=== PATIENT | female | born 1995 | race Caucasian/White ===

== ENCOUNTER 2016-05-19 10:05 | Outpatient (CLI) ==
[2015-07-20 14:23] VITALS: BMI 24.7
--- NOTE | 2016-05-19 15:23 | MRI ---
EXAM: Brain MRI without contrast. HISTORY: Primary stabbing headache. COMPARISON: Head CT 11/01/2014. TECHNIQUE: Multiplanar, multisequence MR images were acquired of the brain without contrast. FINDINGS: The midline structures are central and the craniocervical junction is unremarkable. The ventricles and sulci are normal in size and configuration. There are no abnormal extra-axial fluid collections. The brain parenchyma has no diffusion restriction to suggest acute hypoperfusion or infarction. The re are no abnormal T2 hyperintensities or foci of dark gradient echo signal. The corpus callosum is normal. The pituitary gland is unremarkable. There are no intraorbital masses. There is mild mucosal thickening and a small mucous retention cys t in the left maxillary sinus. Minor scattered mucosal thickening is present in the ethmoid air luis ls and sphenoid sinus. There is moderate adenoidal hypertrophy that is considered normal for the pa tient's age. Middle ears and mastoids are unremarkable. Flow voids are present in the major intracranial arteries and dural venous sinuses. IMPRESSION: 1. No intracranial mass, hemorrhage or acute cerebral infarct. 2. Mild left maxillary sinus disease.
== END 2016-05-19 10:06 | disposition home or self-care (01) ==
LOC: RAD 10:05
PROVIDERS: ATTEND Nurse Practitioner Family
DX: G44.85 Primary stabbing headache (principal)

== ENCOUNTER 2016-09-16 12:38 | Outpatient (CLI) ==
[2015-07-20 14:23] VITALS: BMI 24.7
[2016-09-16 13:00] LABS: BASOPHILS % (AUTO) 0.4 % (0.0-3.0); EOSINOPHILS # (AUTO) 0.2 K/ul (0.0-0.7); EOSINOPHILS % (AUTO) 2.7 % (0.0-7.0); HEMATOCRIT 42.7 % (37.0-47.0); HEMOGLOBIN 14.5 g/dl (12.0-16.0); IMMATURE GRANULOCYTE % (AUTO) 0.1 % (0.0-5.0); LYMPHOCYTES # (AUTO) 2.2 K/uL (0.60-3.4); MEAN CORPUSCULAR HEMOGLOBIN 30.9 pg (27.0-31.0); MONOCYTES # (AUTO) 0.6 K/uL (0.4-2.0); MONOCYTES % (AUTO) 8.8 (0-10); NEUTROPHILS # (AUTO) 3.9 K/ul (2.0-6.9); PLATELET COUNT 263 10^3/uL (140-440); RED BLOOD COUNT 4.69 10^6/ul (4.20-5.40); WHITE BLOOD COUNT 6.93 K/ul (4.6-10.2)
[2016-09-16 13:02] LABS: BILIRUBIN,URINE Negative (NEGATIVE); KETONES,URINE Negative (NEGATIVE); LEUKOCYTE ESTERASE ,URINE Negative (NEGATIVE); NITRITE,URINE Negative (NEGATIVE); PH,URINE 5.5 (5-9); PROTEIN,URINE Negative (NEGATIVE); URINE, BLOOD Negative (NEGATIVE)
[2016-09-16 13:32] LABS: ALBUMIN/GLOBULIN RATIO 1.14; ANION GAP 13.5; BILIRUBIN,TOTAL 0.46 mg/dL (0.00-1.20); BUN/CREATININE RATIO 10.71; CALCIUM 9.7 mg/dL (8.2-10.2); CREATININE 0.84 mg/dL (0.60-1.30); POTASSIUM 4.5 mmol/L (3.5-5.10); TOTAL PROTEIN 7.5 g/dL (6.4-8.2)
[2016-09-16 13:51] LABS: ADD URINE MICROSCOPIC YES
[2016-09-16 13:56] LABS: BACTERIA,URINE TRACE (NOT PRESENT)
== END 2016-09-16 12:39 | disposition home or self-care (01) ==
LOC: LAB 12:38
PROVIDERS: ATTEND Nurse Practitioner Family
DX: R10.84 Generalized abdominal pain (principal)
CPT/HCPCS: 36415; 80053; 81001; 82150; 83690; 84443; 85025

== ENCOUNTER 2017-07-14 12:43 | Outpatient (CLI) ==
[2015-07-20 14:23] VITALS: BMI 24.7
== END 2017-07-14 12:44 | disposition home or self-care (01) ==
LOC: FCC-LAB 12:43
PROVIDERS: ATTEND Family Medicine
DX: J02.9 Acute pharyngitis, unspecified (principal)
CPT/HCPCS: 87651

== ENCOUNTER 2018-04-03 10:33 | Outpatient (CLI) ==
[2015-07-20 14:23] VITALS: BMI 24.7
== END 2018-04-03 10:34 | disposition home or self-care (01) ==
LOC: RHC-LAB 10:33
PROVIDERS: ATTEND Nurse Practitioner Family
DX: Z20.828 Contact with and (suspected) exposure to other viral communicable diseases (principal)
CPT/HCPCS: 87502